=== PATIENT | female | born 1960 | race Caucasian/White ===

== ENCOUNTER 2020-05-15 07:24 | Emergency (ER) | payer MEDICAID, SELFPAY ==
[2020-05-15 07:38] VITALS: BP 162/94; PULSE 91; RESP 18; TEMP 36.9; O2SAT 99
[2020-05-15 08:19] LABS: Basophils Absolute Auto 0.1 K/mm3 (0.0-0.1); Basophils Percent Auto 1.4 % (0.2-1.2); Eosinophils Absolute Auto 0.2 K/mm3 (0-0.3); Eosinophils Percent Auto 3.7 % (0-4.4); Hemoglobin 11.6 g/dL (12.0-15.0); Immature Granulocyte Absolute 0.02 K/mm3 (0.00-0.031); Immature Granulocyte Percent A 0.3 % (0-0.5); Lymphocytes Absolute Auto 1.79 K/mm3 (0.9-3.2); Lymphocytes Percent Auto 30.2 % (18.3-44.2); Mean Corpuscular HGB Conc 33.1 g/dl (32-36); Mean Corpuscular Hemoglobin 30.9 pg (26-34); Mean Corpuscular Volume 93.3 fl (80-100); Mean Platelet Volume 9.3 fl (7.4-10.4); Monocytes Absolute Auto 0.4 K/mm3 (0.1-0.6); Monocytes Percent Auto 6.4 % (2.6-8.5); Neutrophils Absolute Auto 3.4 K/mm3 (1.3-6.7); Platelet Count Result 340 k/mm3 (150-375); Red Blood Count 3.75 M/mm3 (4.2-5.4); Red Cell Distribution Width 13.2 % (11.5-14.5); White Blood Count 5.9 K/mm3 (4.5-10.0)
[2020-05-15] MEDS: CLINDAMYCIN HCL 150 MG CAP 300 MG PO (09:29)
--- NOTE | 2020-05-15 09:41 | ED.DENTAL ---
HPI - Dental/Oral General Chief complaint: Dental/Oral Stated complaint: , oral bleeding Time Seen by Provider: 05/15/20 07:28 Source: RN notes reviewed History of Present Illness HPI Narrative: Patient presents emergency department from home for left gum bleeding and swelling. Patient states last night she was brushing her gums and normally wears dentures. She states right is a toothbrush and toothpaste touch the gums she began to have bleeding from the gum and then had associated swelling and soreness of the left lower jaw. Patient states the bleeding is controlled at this time. She denies any fevers or chills sore throat tongue pain or any other symptoms Related Data Allergies Allergy/AdvReac Type Severity Reaction Status Date / Time aspirin Allergy Unknown Verified 05/15/20 07:44 Penicillins Allergy Unknown Verified 05/15/20 07:44 Review of Systems Review of Systems: Narrative: Gen.: Denies fevers or chills HEENT: See HPI Respiratory: Denies shortness of breath Neuro: Denies headache Skin: Denies rash Endo: Denies DM PMFSH Past Medical History Medical History (Updated 05/15/20 @ 10:09 by Chapin Hsieh DO) Patient denies significant medical history Social History Social History (Updated 05/15/20 @ 09:57 by Chapin Hsieh DO) Smoking status: Never smoker Gender identity (if verbalized by the patient): Female Exam Narrative: Exam Narrative: APPEARANCE: No acute distress, nontoxic, resting in bed EYES: EOMI HEENT: Normocephalic, atraumatic, OMM the left lower jaw has mild swelling with no overlying erythema, there is erythema of the gum with a canker sore over the lower inferior anterior gumline at the base of the gums to the lip, no active bleeding no active drainage, no sub-lingular tenderness Neck: Supple, lightheaded palpation, no cervical lymphadenopathy, no submandibular tenderness RESPIRATORY: No respiratory distress ABDOMINAL: Soft, nontender, nondistended, no rebound or guarding MUSCULOSKELETAl: Moves all extremities. No clubbing, cyanosis or edema. NEURO: Awake and alert. Following commands, speech normal, no focal deficits SKIN:: Warm, dry. No rashes lesions or abrasions PSYCHIATRIC: Normal affect/mood, Course Course Emergency Course: Discussed with patient results of workup and diagnosis. Discussed need for follow-up with primary care, proper use of medication, and reasons to return to the emergency department. Patient understands and agrees to current treatment plan Vital Signs Vital signs: Vital Signs Temperature 98.4 F 05/15/20 07:38 Pulse Rate 91 05/15/20 07:38 Respiratory Rate 18 05/15/20 07:38 Blood Pressure 162/94 H 05/15/20 07:38 Pulse Oximetry 99 05/15/20 07:38 Temperature 98.4 F 05/15/20 07:38 Pulse Rate 91 05/15/20 07:38 Respiratory Rate 18 05/15/20 07:38 Blood Pressure 162/94 H 05/15/20 07:38 Pulse Oximetry 99 05/15/20 07:38 MDM - Dental/Oral Lab Data Result diagrams: 05/15/20 08:11 Labs: Lab Results 05/15/20 Range/Units 08:11 WBC 5.9 (4.5-10.0) K/mm3 RBC 3.75 L (4.2-5.4) M/mm3 Hgb 11.6 L (12.0-15.0) g/dL Hct 35.0 L (37.0-47.0) % MCV 93.3 (80-100) fl MCH 30.9 (26-34) pg MCHC 33.1 (32-36) g/dl RDW 13.2 (11.5-14.5) % Plt Count 340 (150-375) k/mm3 MPV 9.3 (7.4-10.4) fl Immature Gran % (Auto) 0.3 (0-0.5) % Neut % (Auto) 58.0 (45.5-73.1) % Lymph % (Auto) 30.2 (18.3-44.2) % [place] % (Auto) 6.4 (2.6-8.5) % Eos % (Auto) 3.7 (0-4.4) % Baso % (Auto) 1.4 H (0.2-1.2) % Lymph # (Auto) 1.79 (0.9-3.2) K/mm3 [place] # (Auto) 0.4 (0.1-0.6) K/mm3 Eos # (Auto) 0.2 (0-0.3) K/mm3 Baso # (Auto) 0.1 (0.0-0.1) K/mm3 Abs Immat Gran (auto) 0.02 (0.00-0.031) K/mm3 Absolute Neuts (auto) 3.4 (1.3-6.7) K/mm3 Absolute Nucleated RBC 0.0 (0.0-0.012) K/mm3 Nucleated RBC % 0.0 (0.0-0.2) % Discharge Plan Discharge Clinical Impression: Gum inflammation Pa
[2020-05-15 10:17] VITALS: BP 152/92; PULSE 99; RESP 21; O2SAT 99
== END 2020-05-15 10:18 | disposition home or self-care (01) ==
PROVIDERS: Emergency Provider Emergency Medicine
DX: K12.1 Other forms of stomatitis (principal)
CPT/HCPCS: 36415; 85025; 99283; A9270